=== PATIENT | female | born 1940 | race Caucasian/White ===

== ENCOUNTER → 2019-07-06 11:07 | Outpatient (CLI) | payer MEDICARE, SELFPAY ==
--- NOTE | ~2019-07-06 | DEXA_ITS ---
Bone Density Report Name: Kalyani Galvez Age: 79 Sex: Female Ethnicity: White Date of : 1940 Indication: osteopenia; parental hip fracture; height loss; postmenopausal Referring Provider: GHADA, ZACH Cook Study: Bone densitometry was performed. Exam Date: July 06, 2019 Accession number: [id number] There is hypertrophic degenerative change of the lumbar spine, which results in higher than expected spine bone mineral density measurements. These spine BMD and T score and Z score measurements are not reflective of the patient's true general bone mineral density. Bone Density: Region BMD T-score Z-score Classification AP Spine (L1-L4) 0.984 -0.6 2.2 Normal Femoral Neck (Left) 0.631 -2.0 0.4 Osteopenia Total Hip (Left) 0.705 -1.9 0.2 Osteopenia Femoral Neck (Right) 0.621 -2.0 0.3 Osteopenia Total Hip (Right) 0.797 -1.2 0.9 Osteopenia Total Hip Mean 0.751 -1.6 0.6 Osteopenia World Health Organization criteria for BMD impression classify patients as: Normal (T-score at or above -1.0), Osteopenia (T-score between -1.0 and -2.5), or Osteoporosis (T-score at or below -2.5). 10-year Fracture Risk(1): Major Osteoporotic Fracture 29% Hip Fracture 19% Reported Risk Factors: [place] (), Neck BMD=0.621, BMI=24.1, parental fracture (1) FRAX(R) Version 3.08. Fracture probability calculated for an untreated patient. Fracture probability may be lower if the patient has received treatment. Previous Exams: Region Exam Age BMD T-score BMD Change BMD Change Date g/cm2 vs Baseline vs Previous AP Spine(L1-L4) 07/06/2019 79 0.984 -0.6 0.092* 0.083* 05/12/2009 69 0.900 -1.3 0.008 0.008 03/13/2008 67 0.892 -1.4 Total Hip(Left) 07/06/2019 79 0.705 -1.9 -0.031* -0.068* 05/12/2009 69 0.773 -1.4 0.037* 0.037* 03/13/2008 67 0.736 -1.7 Total Hip(Right) 07/06/2019 79 0.797 -1.2 -0.010 -0.019 05/12/2009 69 0.816 -1.0 0.009 0.009 03/13/2008 67 0.807 -1.1 *Denotes significance at 95% confidence level, LSC for AP Spine = 0.022 g/cm2, LSC for Total Hip = 0.027 g/cm2 Clinical Information Provided by Patient: Parent has had a hip fracture Has used the following medications: Vitamin D, Calcium, LEVOTHYROXINE Patient maximum height was 68.0 Menopause Age: 50 No regular weight bearing exercise Drinks caffeinated beverages Onset of menses at age 10 Number of children 5 -
== END ==
PROVIDERS: PCP Internal Medicine; Visit Provider Internal Medicine
DX: Z78.0 Asymptomatic menopausal state (principal); M85.852 Other specified disorders of bone density and structure, left thigh; M85.851 Other specified disorders of bone density and structure, right thigh
CPT/HCPCS: 77080

== ENCOUNTER 2022-07-12 22:25 | Inpatient (IN) | payer MEDICARE, SELFPAY ==
--- NOTE | ~2022-07-12 | XR_ITS ---
AP and lateral views of the left femur Clinical History: Pain Findings: No acute fracture or dislocation is seen. Osseous alignment is anatomic. Left hip joint spa ce is intact. Left knee arthroplasty hardware is present. Soft tissues are unremarkable. Impression: No acute abnormality. Left total knee arthroplasty. Reviewed, dictated and finalized at [facility]. DAMAGE ADJUSTER Impression: No acute abnormality. Left total knee arthroplasty.
--- NOTE | ~2022-07-12 | CT_ITS ---
Noncontrast CT scan of the lumbar spine CLINICAL HISTORY: Back pain, status post fall TECHNIQUE: Axial noncontrast imaging of the lumbar spine was performed. Sagittal and coronal reformat peterson images were constructed. Dose reduction technique was used on this scan by utilizing automated ex posure control and iterative reconstruction technique. FINDINGS: There is levoscoliosis of the lumbar spine. 8 mm anterolisthesis of L5 over S1 present. 5 m m anterolisthesis of L4 over L5 present. No acute fracture identified. There is mild degenerative dis c changes throughout the lumbar spine. At L1-L2, no definite disc bulge or herniation seen. There is facet arthropathy. No spinal canal sten osis. There is severe right neural foraminal narrowing. Left neural foramen preserved. At L2-L3, there is minimal disc bulge. There is facet arthropathy, right worse than left, probable ri ght lateral recess stenosis. There is probable mild to moderate right neural foraminal narrowing. Lef t neural foramen preserved. At L3-L4, disc bulge and facet arthropathy result in mild central canal stenosis. There is moderate t o severe right neural foraminal narrowing. Left neural foramen preserved. At L4-L5, disc bulge and facet arthropathy result in probable severe thecal sac compression/spinal ca nal stenosis. There is mild bilateral neural foraminal narrowing, left fourth digit rate. At L5-S1, disc bulge and facet arthropathy result in focal severe spinal canal stenosis/thecal sac co mpression. There is severe bilateral neural foraminal narrowing. Paravertebral soft tissues are unremarkable. IMPRESSION: No acute fracture. Levoscoliosis with 8 mm anterolisthesis of L5 over S1, and 5 mm anterolisthesis of L4 over L5. Moderate to advanced degenerative spondylosis, as detailed above. There is severe spinal canal stenos is at L4-L5 and L5-S1, with multilevel neural foraminal narrowing. Reviewed, dictated and finalized at location M. UNT INSTALLATION SPECIALIST IMPRESSION: No acute fracture. Levoscoliosis with 8 mm anterolisthesis of L5 over S1, and 5 mm anterolisthesis of L4 over L5. Moderate to advanced degenerative spondylosis, as detailed above. There is ange re spinal canal stenosis at L4-L5 and L5-S1, with multilevel neural foraminal n arrowing.
--- NOTE | ~2022-07-12 | XR_ITS ---
EXAMINATION: XR surgery orthopedic DATE: 07/14/2022 16:39 INDICATION: Pinning of a right femoral neck fracture. TECHNIQUE: 2 fluoroscopic images of the right hip were obtained during procedure performed by Dr. Edouard sarmiento. Radiologist was not present for the imaging or procedure. The amount of fluoroscopy time used duri ng this procedure was 0.9 minutes. COMPARISON: 07/13/2022 FINDINGS: Interval fixation with 3 cannulated lag screws of the laterally impacted subcapital fracture of the p roximal right femur. The screws do not project beyond the articular cortex of the femoral head. The f emoral head remains normally centered in the right acetabulum but is rotated as with abduction. No ot her fractures identified. IMPRESSION: 1. Leg screw fixation of a lateral impacted right femoral subcapital fracture. Reviewed, dictated and finalized at location A. EMENTATION ENGINEER
--- NOTE | ~2022-07-12 | XR_ITS ---
Portable chest x-ray Comparison: 05/10/2012 Clinical History: Hypoxemia Findings: Lungs are clear, without focal consolidation or pleural effusion. Cardiomediastinal silho uette is mildly prominent, with pacemaker device. Bones and soft tissues are unremarkable. Impression: Clear lungs. Pacemaker device. Reviewed, dictated and finalized at location . [employer] Impression: Clear lungs. Pacemaker device.
--- NOTE | ~2022-07-12 | XR_ITS ---
AP and lateral views of the right femur Clinical History: Pain Findings: There is a subcapital fracture of the right femoral neck, probably minimally impacted and m inimally displaced. Remainder of the right femur is intact. Visualized joint spaces are grossly prese rved. Soft tissues are unremarkable. Impression: Traumatic subcapital fracture of the right femoral neck, as detailed above. Reviewed, dictated and finalized at location M. INSPECTOR Impression: Traumatic subcapital fracture of the right femoral neck, as detailed above.
--- NOTE | ~2022-07-12 | CT_ITS ---
CT head without contrast Indication: Status post fall, anticoagulated Technique: Serial scans were obtained through the brain without the administration of contrast. Dose reduction technique was used on this scan by utilizing automated exposure control and iterative recon struction technique. The dose-length product (DLP) was 605.33 mGy-cm. Findings: There is no evidence of intracranial hemorrhage, mass lesion, or acute infarct. The ventri cles and subarachnoid spaces are dilated, consistent with mild atrophy. Low attenuation regions are seen within the periventricular white matter bilaterally, likely representing changes from chronic mi crovascular ischemic disease. There is no evidence of edema, mass effect or midline shift. The visu alized paranasal sinuses and mastoid air cells are clear. Impression: No intracranial hemorrhage, mass, or acute infarct. Atrophy and chronic white matter changes, as above. Reviewed, dictated and finalized at location . OR MERCHANDISER Impression: No intracranial hemorrhage, mass, or acute infarct. Atrophy and chronic white matter changes, as above.
--- NOTE | ~2022-07-12 | CT_ITS ---
Non-contrast CT scan of the Pelvis Clinical indication: Trauma, status post fall Technique: 2.5 mm axial scans were obtained through the pelvis without intravenous or oral contrast. Dose reduction technique was used on this scan by utilizing automated exposure control and iterative reconstruction technique. The dose-length product (DLP) was 843.12 mGy-cm. Findings: There is a traumatic, transverse, minimally impacted fracture through the subcapital region of the right femoral neck. No other fracture or dislocation seen. Bilateral hip and SI joint spaces are well preserved. Probable small right hip joint effusion present. Soft tissues about the pelvis/right hip are essentially unremarkable. No large hematoma evident. No f luid collection or mass lesion identified. There is enthesopathic change at the right hamstring tendo n origin region. Impression: Mildly impacted, minimally displaced subcapital fracture of the right femoral neck. Reviewed, dictated and finalized at [facility]. CAL HACKER Impression: Mildly impacted, minimally displaced subcapital fracture of the right femoral n maría.
[2022-07-12 22:33] VITALS: BP 132/74; PULSE 84; RESP 16; TEMP 36.5; O2SAT 90
--- NOTE | 2022-07-12 23:02 | PC.NURSE ---
Nurse report given to Vibha MEJIA
--- NOTE | 2022-07-12 23:49 | ED.GENADULT ---
HPI - General Adult General Chief complaint: Extremity Injury, Lower Stated complaint: fall-right hip pain Time Seen by Provider: 07/12/22 23:19 Source: patient and family Mode of arrival: wheelchair Limitations: no limitations History of Present Illness HPI narrative: This is a 82-year-old female who comes in with chief complaint of a fall and right hip pain. The fall occurred at around 1800. She reports she tripped over her area rug and landed directly onto the right hip and right leg. Denies any specific head injury. Denies syncope. She does take Eliquis. Patient reports pain is limited to the right upper leg and right hip and low back. She took Tylenol around 1 hour after the fall and this had minimal relief. Her family witnessed the fall and was able to drive her to the ED. She has not been able to bear any weight. Denies any further site of injury. Related Data Allergies Allergy/AdvReac Type Severity Reaction Status Date / Time NKDA Allergy Mild Uncoded 08/16/19 15:13 Review of Systems Review of Systems: CONSTITUTIONAL: Denies fever, chills, or sweats. EYES: Denies visual changes, redness, or discharge. ENT: Denies rhinorrhea, congestion, sore throat, or otalgia. CARDIOVASCULAR: Denies chest pain, palpitations, or edema. RESPIRATORY: Denies cough or dyspnea. GASTROINTESTINAL: Denies abdominal pain, nausea, vomiting, or diarrhea. GENITOURINARY: Denies dysuria or hematuria. SKIN: Denies rash or itching. MUSCULOSKELETAL: Endorses right hip pain, right leg pain and back pain. Endorses low back pain. denies further sites of pain pain, or myalgia. NEUROLOGIC: Denies syncope, headache, numbness, dizziness, or weakness. PSYCHIATRIC: Denies anxiety or depression. Exam Narrative: GENERAL: Well-appearing, well-nourished, and in no acute distress. HEAD: Normocephalic, atraumatic. EYES: PERRLA and EOMI. ENT: Nares clear, no rhinorrhea or epistaxis. Mucous membranes moist. Oropharynx without tonsillar hypertrophy exudate or other lesions. NECK: Supple. No adenopathy or masses. CHEST: No respiratory distress. Clear to auscultation. No wheezes rales or rhonchi HEART: Regular rate and rhythm. No murmur heard. Normal peripheral pulses. ABDOMEN: Soft, nontender, nondistended, normal active bowel sounds. EXTREMITIES: Pain with logroll of the right lower extremity. No pain with logroll of the left lower extremity. Moderate tenderness to palpation in the right anterior proximal thigh as well as the right lateral thigh. Mild tenderness to the lumbar spine and paraspinal muscles. Leg lengths appear equal. No edema. SKIN: Warm, dry, no rash. No overlying skin changes NEURO: Cranial nerves II through XII intact. Alert and oriented x3. No focal deficits. PSYCH: Normal mood and affect. Course Course Emergency Course: : Discussed patient with the hospitalist and they agreed to admit to [facility]. 0305: Consult Dr Michaud with Ortho Vital Signs Vital signs: Vital Signs Temperature 97.7 F 07/12/22 22:33 Pulse Rate 84 07/12/22 22:33 Respiratory Rate 16 07/12/22 22:33 Blood Pressure 132/74 07/12/22 22:33 Pulse Oximetry 90 07/12/22 22:33 Oxygen Delivery Room Air 07/12/22 22:33 Temperature 97.7 F 07/12/22 22:33 Pulse Rate 60 07/13/22 01:46 Respiratory Rate 16 07/13/22 01:46 Blood Pressure 122/74 07/13/22 01:46 Pulse Oximetry 92 07/13/22 01:46 Oxygen Delivery Room Air 07/12/22 22:33 Medical Decision Making MDM Narrative Medical decision making narrative: This is a 82-year-old female who presents with right hip pain occurring this evening prior to arrival in the ED. Imaging shows a right femoral neck fracture with minimal displacement and angulation. Imaging of the lumbar spine and rest of the right femur are negative for any acute fractures or bony processes. CBC and CMP are relatively unremarkable. She has been satting at 85 to 90% on room air while she has been here. Hooked up to
[2022-07-13] VITALS (41 sets, daily range): BP systolic 93–132; BP diastolic 51–75; PULSE 45–81; RESP 13–22; TEMP 36.2–37.2; O2SAT 84–98; BMI 23.3
[2022-07-13 01:07] LABS: Basophils Percent Auto 0.2 % (0.2-1.2); Eosinophils Percent Auto 0.2 % (0-4.4); Immature Granulocyte Absolute 0.04 K/mm3 (0.00-0.031); Immature Granulocyte Percent A 0.4 % (0-0.5); Immature Platelet Fraction Pct 4.4 % (0.9-11.2); Lymphocytes Absolute Auto 0.49 K/mm3 (0.9-3.2); Lymphocytes Percent Auto 5.5 % (18.3-44.2); Mean Corpuscular HGB Conc 34.2 g/dl (32-36); Mean Corpuscular Hemoglobin 33.8 pg (26-34); Mean Corpuscular Volume 98.7 fl (80-100); Mean Platelet Volume 9.5 fl (7.4-10.4); Monocytes Absolute Auto 0.6 K/mm3 (0.1-0.6); Monocytes Percent Auto 6.4 % (2.6-8.5); Neutrophils Absolute Auto 7.8 K/mm3 (1.3-6.7); Neutrophils Percent Auto 87.3 % (45.5-73.1); Platelet Count Result 161 k/mm3 (150-375); Red Blood Count 3.85 M/mm3 (4.2-5.4); Red Cell Distribution Width 13.1 % (11.5-14.5); White Blood Count 8.9 K/mm3 (4.5-10.0)
[2022-07-13] MEDS: MORPHINE SULFATE (*CRX) 2 MG/ML INJ IV PUSH (01:11)
[2022-07-13] MEDS: ONDANSETRON INJ 4 MG/2 ML VIAL IV PUSH (01:11)
[2022-07-13 01:15] LABS: Alanine Aminotransferase 24 U/L (6-35); Albumin Level 4.1 g/dL (3.5-5.1); Alkaline Phosphatase 90 U/L (38-126); Anion Gap 5 mmol/L (8-16); Aspartate Amino Transferase 41 U/L (14-36); Bilirubin,Total 0.9 mg/dL (0.2-1.3); Blood Urea Nitrogen 31 mg/dL (7-17); Calcium 8.6 mg/dL (8.4-10.2); Carbon Dioxide 27 mmol/L (22-30); Chloride 100 mmol/L (98-107); Estimated CRCL calculation 41 ml/min; Estimated Glomerular Filt Rate > 60; Glucose 146 mg/dL (65-110); Potassium 3.7 mmol/L (3.4-5.0); Sodium 132 mmol/L (137-145)
[2022-07-13 02:20] LABS: Appearance Urine Clear (Clear); Bilirubin Urine Negative (Negative); Blood Urine 2+ (Negative); Color Urine Yellow (Yellow); Glucose Urine UA Negative (Negative); Ketones Urine Negative (Negative); Leukocyte Esterase Ur Negative LEU/UL (Negative); Nitrate Urine Negative (Negative); Protein Urine Negative (Negative); Specific Grav Ur 1.015 (1.001-1.035); Urobilinogen Urine 0.2 mg/dL (<2.0)
[2022-07-13 02:26] LABS: WBC Urine 0-3 /hpf
[2022-07-13 02:28] LABS: Add Urine Microscopic? YES
[2022-07-13 02:36] LABS: Influenza A QL RT-PCR Negative (Negative); Influenza B QL RT-PCR Negative (Negative); RSV RNA, RT-PCR Negative (Negative); SARS-CoV-2 RNA PCR Negative
--- NOTE | 2022-07-13 04:45 | ADMGEN ---
This patient, Kalyani Galvez, was admitted to 3 Med Surg Room 306-02 at 0430. Patient/family oriented to hospital policies and general routines including ID bracelet, bed and alarms, visiting hours, pain management, procedures, bathroom and other care routines, personal items, smoking policy, room service/diet, and visiting hours. Information on how to activate the Rapid Response Team has been discussed. Patient/Family are encouraged to report perceived risks to care and to ask questions if they do not understand what they are told or what they should do.
[2022-07-13] MEDS: MORPHINE SULFATE (*CRX) 4 MG/ML INJ IV PUSH (05:10)
[2022-07-13] MEDS: lisinopriL 2.5 MG TABLET PO (09:18)
[2022-07-13] MEDS: METOPROLOL SUCCINATE EXT REL 100 MG TABCR PO (09:18)
[2022-07-13] MEDS: oxyBUTYnin CHLORIDE XL 5 MG TAB.ER.24 15 MG PO (09:18)
[2022-07-13] MEDS: HEPARIN SODIUM 5,000 UNITS/ML VIAL 5000 UNITS SUB-Q ×3 (09:18→21:13)
--- NOTE | 2022-07-13 11:03 | PM.CNOR ---
Assessment and Plan Assessment and plan (1) Closed fracture of neck of right femur: Qualifiers: Encounter type: initial encounter Qualified Code(s): S72.001A - Fracture of unspecified part of neck of right femur, initial encounter for closed fracture Code(s): S72.001A - Fracture of unspecified part of neck of right femur, initial encounter for closed fracture Status: Acute Plan 82-year-old female with an impacted right femoral neck fracture seen on the CT scan. I discussed with her the role of surgical stabilization with a pinning in-situ. She is chronically on Eliquis which is going to be held today. Plan on proceeding tomorrow afternoon with Pinning in-situ right femoral neck fracture. Risks and potential complications were discussed in detail and questions answered. Although she lives at home with her she may need a short rehab stay depending on how she does postoperatively. May benefit from home health PT if she is able to get home. Thank you for the consultation. History of Present Illness HPI Consult date: 07/13/22 Chief complaint: Right Femoral Neck Fracture Narrative: This document created with [id number] technology and is subject to sheet metal operator irregularities. 82-year-old female who fell at home yesterday landing on her right side suffering an impacted right femoral neck fracture. No other significant injury with this occurrence. Review of Systems Constitutional: Constitutional: Reports no additional constitutional complaints, Denies excessive sweating and Denies fatigue Eyes: Eyes: Reports no additional eye complaints ENT: Reports system reviewed and no additional complaints, except as documented Cardiovascular: Cardiovascular: Denies chest pain at rest and Denies dyspnea Respiratory: Respiratory: Reports no additional respiratory complaints and Denies dyspnea Gastrointestinal: Gastrointestinal: Reports no additional gastrointestinal complaints Musculoskeletal: Musculoskeletal: Reports as per HPI Integumentary/Breasts: Skin/Breast: Reports system reviewed and no additional complaints, except as docu Neurologic: Reports as per HPI Endocrine: Endocrine: Denies excessive sweating and Denies fatigue Hematologic/Lymphatic: Hematologic/Lymphatic: Denies easy bleeding and Denies easy bruising PMFSH Past Medical History Medical History (Updated 07/13/22 @ 11:08 by Salo Michaud MD) Atrial fibrillation Hypertension Hypothyroid Pacemaker Surgical History Surgical History (Updated 07/13/22 @ 11:04 by Salo Michaud MD) History of left knee replacement Social History Social History Smoking status: Never smoker Alcohol intake: current Drinks per week: 1 Substance use: never Lack of Transportation: No Lack of Food: Never True Current Housing: I Have Housing Concerned About Future Housing: No Difficulty Paying Gas/Electric Bills: No Difficulty Paying for Meds: No Currently Unemployed: No Education: Master's Degree or Higher Difficulty w/ Childcare or Family Care: No Spiritual care concerns: No Meds Home Medications and Allergies Home Medications Medication Instructions Recorded Confirmed Type apixaban 5 mg tablet (Eliquis) 5 mg PO BID 07/13/22 07/13/22 History levothyroxine 75 mcg tablet 75 mcg PO DAILY 07/13/22 07/13/22 History lisinopril 2.5 mg tablet 2.5 mg PO DAILY 07/13/22 07/13/22 History metoprolol succinate 100 mg 100 mg PO BID 07/13/22 07/13/22 History tablet,extended release 24 hr oxybutynin chloride 15 mg 15 mg PO DAILY 07/13/22 07/13/22 History tablet,extended release 24 hr Allergies Allergy/AdvReac Type Severity Reaction Status Date / Time oxycodone AdvReac Severe Stopped Verified 07/13/22 07:53 Breathing Vital Signs Vital Signs - 24 hr 07/12/22 22:33 07/13/22 01:15 07/13/22 01:16 Temperature 97.7 F Pulse Rate 84 61
--- NOTE | 2022-07-13 12:59 | PM.IMHP ---
H&P: HPI History of Present Illness Date/Time: 07/13/22 12:59 Chief Complaint: Fall Narrative: 82 years old F with PMH of Afibb on AC presented with fall. She fell around 6PM last night.? She reports she tripped over her area rug and landed directly onto the right hip and right leg.? Denies any specific head injury.? Denies syncope.? She does take Eliquis.?? Her family witnessed the fall and was able to drive her to the ED.? She has not been able to bear any weight.? Denies any further site of injury. Requesting to decrease/switch IV morphine to something less strong. Review of Systems Constitutional: Constitutional: Reports no additional constitutional complaints Eyes: Eyes: Reports no additional eye complaints ENT: Reports system reviewed and no additional complaints, except as documented Cardiovascular: Cardiovascular: Reports no additional cardiovascular complaints Respiratory: Respiratory: Reports no additional respiratory complaints Gastrointestinal: Gastrointestinal: Reports no additional gastrointestinal complaints Musculoskeletal: Musculoskeletal: Reports arthralgias Neurologic: Reports system reviewed and no additional complaints, except as documented [facility] Past Medical History Medical History (Updated 07/13/22 @ 13:05 by Theresa García MD) Atrial fibrillation Hypertension Hypothyroid Pacemaker Surgical History Surgical History History of left knee replacement Social History Social History Smoking status: Never smoker Alcohol intake: current Drinks per week: 1 Substance use: never Lack of Transportation: No Lack of Food: Never True Current Housing: I Have Housing Concerned About Future Housing: No Difficulty Paying Gas/Electric Bills: No Difficulty Paying for Meds: No Currently Unemployed: No Education: Master's Degree or Higher Difficulty w/ Childcare or Family Care: No Spiritual care concerns: No Meds Home Medications and Allergies Home Medications Medication Instructions Recorded Confirmed Type apixaban 5 mg tablet (Eliquis) 5 mg PO BID 07/13/22 07/13/22 History levothyroxine 75 mcg tablet 75 mcg PO DAILY 07/13/22 07/13/22 History lisinopril 2.5 mg tablet 2.5 mg PO DAILY 07/13/22 07/13/22 History metoprolol succinate 100 mg 100 mg PO BID 07/13/22 07/13/22 History tablet,extended release 24 hr oxybutynin chloride 15 mg 15 mg PO DAILY 07/13/22 07/13/22 History tablet,extended release 24 hr Allergies Allergy/AdvReac Type Severity Reaction Status Date / Time oxycodone AdvReac Severe Stopped Verified 07/13/22 07:53 Breathing Vital Signs Vital Signs - 24 hr 07/12/22 22:33 07/13/22 01:15 07/13/22 01:16 Temperature 97.7 F Pulse Rate 84 61 61 Respiratory Rate 16 17 16 Blood Pressure 132/74 132/75 Pulse Oximetry 90 91 84 L Oxygen Delivery Room Air 07/13/22 01:17 07/13/22 01:30 07/13/22 01:31 Temperature Pulse Rate 60 60 61 Respiratory Rate 13 13 14 Blood Pressure 117/69 Pulse Oximetry 86 L 94 Oxygen Delivery 07/13/22 01:32 07/13/22 01:41 07/13/22 01:45 Temperature Pulse Rate 62 65 62 Respiratory Rate 15 20 15 Blood Pressure Pulse Oximetry 97 93 93 Oxygen Delivery 07/13/22 01:46 07/13/22 01:47 07/13/22 01:50 Temperature Pulse Rate 60 60 60 Respiratory Rate 16 19 16 Blood Pressure 122/74 Pulse Oximetry 92 96 93 Oxygen Delivery 07/13/22 01:55 07/13/22 02:00 07/13/22 02:05 Temperature Pulse Rate 60 81 72 Respiratory Rate 17 22 H 17 Blood Pressure Pulse Oximetry 84 L 91 Oxygen Delivery 07/13/22 02:12 07/13/22 02:15 07/13/22 02:33 Temperature Pulse Rate 66 62 63 Respiratory Rate 18 17 15 Blood Pressure Pulse Oximetry 91 93 93 Oxygen Delivery 07/13/22 02:35 07/13/22 02:40 07/13/22 02:49 Temperature Pulse Rate 61 60 60 Respiratory Rate
[2022-07-13] MEDS: SODIUM CHLORIDE 0.9% IV 500 ML IV CONT (16:21)
[2022-07-13] MEDS: SODIUM CHLORIDE 0.9% IV 1,000 ML 75 ML IV CONT (18:17)
[2022-07-13] MEDS: ACETAMINOPHEN 325 MG TABLET 650 MG PO (19:14)
[2022-07-13] MEDS: MIDODRINE HCL 2.5 MG TABLET 5 MG PO (19:14)
[2022-07-14] VITALS (14 sets, daily range): BP systolic 128–170; BP diastolic 71–108; PULSE 48–80; RESP 13–18; TEMP 36.1–37.6; O2SAT 93–100
[2022-07-14 06:03] LABS: Basophils Percent Auto 0.5 % (0.2-1.2); Eosinophils Absolute Auto 0.2 K/mm3 (0-0.3); Eosinophils Percent Auto 3.5 % (0-4.4); Hematocrit 32.9 % (37.0-47.0); Immature Granulocyte Absolute 0.02 K/mm3 (0.00-0.031); Immature Granulocyte Percent A 0.3 % (0-0.5); Immature Platelet Fraction Pct 5.4 % (0.9-11.2); Lymphocytes Absolute Auto 1.08 K/mm3 (0.9-3.2); Lymphocytes Percent Auto 17.9 % (18.3-44.2); Mean Corpuscular HGB Conc 33.4 g/dl (32-36); Mean Corpuscular Hemoglobin 33.7 pg (26-34); Mean Corpuscular Volume 100.9 fl (80-100); Mean Platelet Volume 10.5 fl (7.4-10.4); Monocytes Absolute Auto 0.5 K/mm3 (0.1-0.6); Monocytes Percent Auto 7.5 % (2.6-8.5); Neutrophils Absolute Auto 4.3 K/mm3 (1.3-6.7); Neutrophils Percent Auto 70.3 % (45.5-73.1); Platelet Count Result 118 k/mm3 (150-375); Red Blood Count 3.26 M/mm3 (4.2-5.4)
[2022-07-14 06:09] LABS: Anion Gap 2 mmol/L (8-16); Blood Urea Nitrogen 25 mg/dL (7-17); Calcium 7.6 mg/dL (8.4-10.2); Carbon Dioxide 25 mmol/L (22-30); Chloride 103 mmol/L (98-107); Estimated CRCL calculation 41 ml/min; Estimated Glomerular Filt Rate > 60; Glucose 89 mg/dL (65-110); Potassium 4.4 mmol/L (3.4-5.0); Sodium 130 mmol/L (137-145)
[2022-07-14 06:29] LABS: Hemoglobin A1C 5.2 % (<5.7)
[2022-07-14] MEDS: SODIUM CHLORIDE 0.9% IV 1,000 ML 75 ML IV CONT (07:49)
[2022-07-14 13:45] LABS: Glucose Point of Care 80 mg/dl (65-105)
[2022-07-14] MEDS: LACTATED RINGERS 1,000 ML 30 ML IV CONT (14:25)
--- NOTE | 2022-07-14 14:39 | WPDANESEPPF ---
Anes - Initial Pre Proc Eval Procedure: Operation Date: 07/14/22 15:30 Proposed Procedures p Right Hip Pinning - Salo Michaud MD Date/Time: 07/14/22 14:39 Surgeon: Santosh Romo MD Pre Op Diagnosis: Right Femoral Neck Fracture Patient Data Age: 82 Gender: F Height: 1.65 m Weight: 63.5 kg Last Vital Signs Temp 37.6 C H 07/14/22 14:35 Pulse 48 L 07/14/22 14:35 Resp 16 07/14/22 14:35 BP 137/84 07/14/22 14:35 Pulse Ox 98 07/14/22 14:35 O2 Del Method Room Air 07/14/22 14:35 O2 Flow Rate 2 07/14/22 09:27 Allergies Allergy/AdvReac Type Severity Reaction Status Date / Time oxycodone AdvReac Severe Stopped Verified 07/14/22 14:34 Breathing Home Medications Medication Instructions Recorded Confirmed Type apixaban 5 mg tablet (Eliquis) 5 mg PO BID 07/13/22 07/13/22 History levothyroxine 75 mcg tablet 75 mcg PO DAILY 07/13/22 07/13/22 History lisinopril 2.5 mg tablet 2.5 mg PO DAILY 07/13/22 07/13/22 History metoprolol succinate 100 mg 100 mg PO BID 07/13/22 07/13/22 History tablet,extended release 24 hr oxybutynin chloride 15 mg 15 mg PO DAILY 07/13/22 07/13/22 History tablet,extended release 24 hr Laboratory Tests 07/14/22 07/14/22 07/14/22 05:30 05:30 05:30 WBC 6.0 K/mm3 K/mm3 (4.5-10.0) RBC 3.26 M/mm3 L M/mm3 (4.2-5.4) Hgb 11.0 g/dL L g/dL (12.0-15.0) Hct 32.9 % L % (37.0-47.0) MCV 100.9 fl H fl (80-100) MCH 33.7 pg pg (26-34) MCHC 33.4 g/dl g/dl (32-36) RDW 13.0 % % (11.5-14.5) Plt Count 118 k/mm3 L k/mm3 (150-375) MPV 10.5 fl H fl (7.4-10.4) Immature Gran % (Auto) 0.3 % % (0-0.5) Neut % (Auto) 70.3 % % (45.5-73.1) Lymph % (Auto) 17.9 % L % (18.3-44.2) Wayne % (Auto) 7.5 % % (2.6-8.5) Eos % (Auto) 3.5 % % (0-4.4) Baso % (Auto) 0.5 % % (0.2-1.2) Lymph # (Auto) 1.08 K/mm3 K/mm3 (0.9-3.2) Wayne # (Auto) 0.5 K/mm3 K/mm3 (0.1-0.6) Eos # (Auto) 0.2 K/mm3 K/mm3 (0-0.3) Baso # (Auto) 0.0 K/mm3 K/mm3 (0.0-0.1) Abs Immat Gran (auto) 0.02 K/mm3 K/mm3 (0.00-0.031) Absolute Neuts (auto) 4.3 K/mm3 K/mm3 (1.3-6.7) Absolute Nucleated RBC 0.0 K/mm3 K/mm3 (0.0-0.012) Nucleated RBC % 0.0 % % (0.0-0.2) % Immature Plt Fraction 5.4 % % (0.9-11.2) Sodium 130 mmol/L L mmol/L (137-145) Potassium 4.4 mmol/L mmol/L (3.4-5.0) Chloride 103 mmol/L mmol/L (98-107) Carbon Dioxide 25 mmol/L mmol/L (22-30) Anion Gap 2 mmol/L L mmol/L (8-16) BUN 25 mg/dL H mg/dL (7-17) Creatinine 0.80 mg/dL mg/dL (0.7-1.0) Estim Creat Clear Calc 41 ml/min ml/min Estimated GFR > 60 (59 - ) Glucose 89 mg/dL mg/dL (65-110) POC Capillary Glucose Hemoglobin A1c 5.2 % % (<5.7) Calcium 7.6 mg/dL L mg/dL (8.4-10.2) 07/14/22 13:41 WBC RBC Hgb Hct MCV MCH MCHC RDW Plt Count MPV Immature Gran % (Auto) Neut % (Auto) Lymph % (Auto) Wayne % (Auto) Eos % (Auto) Baso % (Auto) Lymph # (Auto) Wayne # (Auto) Eos # (Auto) Baso # (Auto) Abs Immat Gran (auto) Absolute Neuts (auto) Absolute Nucleated RBC Nucleated RBC % % Immature Plt Fraction Sodium Potassium Chloride Carbon Dioxide Anion Gap BUN Creatinine Estim Creat Clear Calc Estimated GFR Glucose POC Capillary Glucose 80 mg/dl mg/dl (65-105) Hemoglobin A1c Calcium Patient hx anesthesia problems: none Family hx anesthesia problems: none Results Review: All pre-operative r
--- NOTE | 2022-07-14 15:20 | WPDHPUPDATE1 ---
History and Physical Update Update Date/Time: 07/14/22 15:20 History and Physical has been reviewed, including an updated exam of the patient. There are NO changes in the patient's condition. Risks, benefits, and alternatives have been discussed and questions answered. Patient agrees to proceed with procedure.
[2022-07-14] MEDS: ceFAZolin 2 GM/D5W 50 ML 2 GM/50 ML BAG IVPB (15:39)
--- NOTE | 2022-07-14 15:42 | PM.IMPN ---
Progress Note: A&P Assessment and Plan (1) Closed fracture of neck of right femur: Qualifiers: Encounter type: initial encounter Qualified Code(s): S72.001A - Fracture of unspecified part of neck of right femur, initial encounter for closed fracture Code(s): S72.001A - Fracture of unspecified part of neck of right femur, initial encounter for closed fracture Status: Acute (2) Atrial fibrillation: Code(s): I48.91 - Unspecified atrial fibrillation Status: Acute (3) Pacemaker: Code(s): Z95.0 - Presence of cardiac pacemaker Status: Acute Plan 82 years old F with PMH of Afbb, has pacemaker presented after mechanical fall, found to have right hip fracture. # Right Hip Fracture:[facility] Bed rest Pain control Appreciate Orthopedic help Going for surgery today # H/o Afibb: Eliquis on hold Bradycardic and hence metoprolol on hold # HTN: Resume Lisinopril, BB. Beta-reji currently on hold due to bradycardia. May need to lower the does eventually # H/o Hypothyroidism: c/w Levothyroxine # DVT ppx: SCD # Code:Full # Dispo: PT OT after the surgery likely need rehabilitation Subjective Date/time seen: 07/14/22 15:42 Interval history: Pain is controlled. Denies any new complaints. No chest pain or shortness of breath. Plan for surgery today. Review of Systems Review of Systems: All systems reviewed & are unremarkable except as noted in HPI and below Exam Narrative: GENERAL: Well-appearing, well-nourished, and in no acute distress. HEAD: Normocephalic, atraumatic. EYES: PERRLA and EOMI. NECK: Supple.? No adenopathy or masses.? CHEST: No respiratory distress. Clear to auscultation. No wheezes rales or rhonchi HEART: Regular rate and rhythm.? No murmur heard.? Normal peripheral pulses. ABDOMEN: Soft, nontender, nondistended, normal active bowel sounds. EXTREMITIES: Pain with logroll of the right lower extremity.?No edema. SKIN: Warm, dry, no rash.? No overlying skin changes NEURO: Cranial nerves II through XII intact.? Alert and oriented x3. No focal deficits.? PSYCH: Normal mood and affect. Objective Data Vital Signs Vital Signs: Vital Signs - 24 hr 07/13/22 16:18 07/13/22 17:30 07/13/22 20:00 Temperature Pulse Rate 45 L Respiratory Rate Blood Pressure 98/60 L 102/60 Pulse Oximetry 92 93 Oxygen Delivery Nasal Cannula Oxygen Flow Rate 2 07/13/22 22:00 07/14/22 06:00 07/14/22 09:27 Temperature 98.0 F 98 F Pulse Rate 69 66 Respiratory Rate 16 17 Blood Pressure 108/61 146/76 H Pulse Oximetry 95 94 98 Oxygen Delivery Nasal Cannula Oxygen Flow Rate 2 07/14/22 09:46 07/14/22 14:00 07/14/22 14:35 Temperature 98.7 F 99.7 F H Pulse Rate 48 L Respiratory Rate 18 16 Blood Pressure 128/82 137/84 Pulse Oximetry 93 96 98 Oxygen Delivery Room Air Room Air Oxygen Flow Rate Intake/Output Intake/Output: Intake & Output 07/11/22 07/12/22 07/13/22 07/14/22 23:59 23:59 23:59 23:59 Intake Total 1710 1000 Output Total 950 1400 Balance 760 -400 Meds/Results Medications: Active Medications Generic Name Dose Route Start Last Admin Trade Name Freq PRN Reason Stop Dose Admin Acetaminophen 650 mg 07/13/22 18:22 07/13/22 19:14 Acetaminophen 325 Mg Tablet PO 650 mg Q6H PRN Administration Mild Pain (1-3) or Fever Fentanyl Citrate 25 mcg 07/14/22 14:34 Fentanyl Citrate Inj (*Crx) 100 Mcg/2 Ml Vial IV PUSH Q2M PRN Pain Sodium Chloride 1,000 mls @ 75 mls/hr 07/13/22 17:45 07/14/22 07:49 Normal Saline Iv IV CONT 75 mls/hr .[id number] EMERSON Administration Lactated Ringer's 1,000 mls @ 30 mls/hr 07/14/22 14:35 07/14/22 14:25 Lr - Lactated Ringers Iv IV CONT 30 mls/hr .Q24H EMERSON Administration Lactated Ringer's 1,000 mls @ 30 mls/hr 07/14/22 14:35 Lr - Lactated Ringers Iv IV CONT .Q24H EMERSON Levothyroxine Sodium 75 mcg 07/13/22 06:30 02
[2022-07-14] MEDS: BUPIVACAINE/EPINEPHRINE 0.5% 10 ML VIAL 30 ML INFILTRATE (16:11)
[2022-07-14] MEDS: fentaNYL CITRATE INJ (*CRX) 100 MCG/2 ML VIAL 25 MCG IV PUSH (16:55)
--- NOTE | 2022-07-14 16:57 | P.OP_ITS ---
Procedure Note - Detailed Date of Procedure 07/14/22 Pre-op Diagnosis Right Femoral Neck Fracture Post-op Diagnosis Same Procedure Performed pinning in-situ right femoral neck fracture Surgeon Salo Michaud MD Hub Inventory Specialist Barbra S Anesthesia General Description of Procedure the patient was identified and site identified. She was taken to the operating room and after general anesthetic induction and intubation, she was transferred over to the fracture table positioned supine taking care to pad her torso and extremities. The fracture was assessed fluoroscopically and noted to be unchanged from the initial films. The right hip and thigh was prepped and draped in usual sterile fashion. 10 cubic centimeters of 0.5% Marcaine and epinephrine solution was injected into the subcutaneous tissue in the area of the incision. Longitudinal incision was made along the lateral aspect of the proximal femur. Subcutaneous tissue sharply dissected down to the ID band which was divided in line with the incision. Under fluoroscopic control three guide pins for the 6.5 millimeter cannulated screws were inserted into the femoral neck and head over which three cannulated screws were passed. Guide pins removed. Hardware placement was assessed fluoroscopically in the AP and lateral views and noted to be satisfactory. The wound was irrigated with sterile saline. ID band reapproximated with 0 Vicryl as was the deeper layers of the subcu. Skin reapproximated with 3-0 V lock and david. Sterile dressings applied. She tolerated the procedure well. She was awakened, extubated and taken to recovery area in stable condition. There were no known intraoperative complications. Estimated blood loss 20 milliliters. She received perioperative antibiotics. Estimated Blood Loss -20.0 Drains No Packing No Pathology None sent Complications No immediate complications Condition Stable Disposition PACU [facility] Billing Surgery - Charge Forward: Surgery Billing ([id number], [id number])
[2022-07-14] MEDS: SENNA/DOCUSATE SODIUM TABLET 2 TAB PO (18:48)
[2022-07-14] MEDS: SODIUM CHLORIDE 0.9% IV 1,000 ML 125 ML IV CONT (18:48)
[2022-07-14] MEDS: FAMOTIDINE 20 MG TABLET PO (20:31)
[2022-07-14] MEDS: METOPROLOL SUCCINATE EXT REL 100 MG TABCR PO (20:32)
[2022-07-14] MEDS: LOPERAMIDE HCL 2 MG CAPSULE PO (21:47)
[2022-07-15] VITALS (10 sets, daily range): BP systolic 120–138; BP diastolic 70–82; PULSE 60–72; RESP 12–18; TEMP 36.2–36.9; O2SAT 88–100
[2022-07-15] MEDS: traMADol HCL (*CRX) 50 MG TABLET PO ×3 (02:48→21:12)
[2022-07-15] MEDS: LEVOTHYROXINE SODIUM 75 MCG TABLET PO (05:38)
[2022-07-15 06:38] LABS: Anion Gap 3 mmol/L (8-16); Blood Urea Nitrogen 17 mg/dL (7-17); Calcium 7.3 mg/dL (8.4-10.2); Carbon Dioxide 24 mmol/L (22-30); Chloride 105 mmol/L (98-107); Estimated CRCL calculation 53 ml/min; Estimated Glomerular Filt Rate > 60; Glucose 100 mg/dL (65-110); Potassium 4.3 mmol/L (3.4-5.0); Sodium 132 mmol/L (137-145)
[2022-07-15 08:16] LABS: Basophils Percent Auto 0.4 % (0.2-1.2); Eosinophils Absolute Auto 0.1 K/mm3 (0-0.3); Eosinophils Percent Auto 1.8 % (0-4.4); Hematocrit 32.3 % (37.0-47.0); Hemoglobin 10.6 g/dL (12.0-15.0); Immature Granulocyte Absolute 0.03 K/mm3 (0.00-0.031); Immature Granulocyte Percent A 0.4 % (0-0.5); Lymphocytes Absolute Auto 0.72 K/mm3 (0.9-3.2); Lymphocytes Percent Auto 9.9 % (18.3-44.2); Mean Corpuscular HGB Conc 32.8 g/dl (32-36); Mean Corpuscular Hemoglobin 33.8 pg (26-34); Mean Corpuscular Volume 102.9 fl (80-100); Mean Platelet Volume 10.8 fl (7.4-10.4); Monocytes Absolute Auto 0.8 K/mm3 (0.1-0.6); Monocytes Percent Auto 10.6 % (2.6-8.5); Neutrophils Absolute Auto 5.6 K/mm3 (1.3-6.7); Neutrophils Percent Auto 76.9 % (45.5-73.1); Platelet Count Result 107 k/mm3 (150-375); Red Blood Count 3.14 M/mm3 (4.2-5.4); Red Cell Distribution Width 13.2 % (11.5-14.5); White Blood Count 7.3 K/mm3 (4.5-10.0)
[2022-07-15] MEDS: METOPROLOL SUCCINATE EXT REL 100 MG TABCR PO ×2 (08:27→21:12)
[2022-07-15] MEDS: oxyBUTYnin CHLORIDE XL 5 MG TAB.ER.24 15 MG PO (08:27)
[2022-07-15] MEDS: APIXABAN 5 MG TABLET PO ×2 (08:29→19:21)
[2022-07-15] MEDS: FAMOTIDINE 20 MG TABLET PO ×2 (08:29→21:12)
[2022-07-15] MEDS: lisinopriL 2.5 MG TABLET PO (08:29)
--- NOTE | 2022-07-15 12:58 | PM.PNORT ---
Progress Note: A&P Assessment and Plan (1) Closed fracture of neck of right femur: Qualifiers: Encounter type: initial encounter Qualified Code(s): S72.001A - Fracture of unspecified part of neck of right femur, initial encounter for closed fracture Code(s): S72.001A - Fracture of unspecified part of neck of right femur, initial encounter for closed fracture Status: Acute Plan 82-year-old female postop day 1 after right hip pinning. She will resume her Eliquis for DVT prophylaxis. Tramadol and Tylenol order for pain which is well controlled currently. She will maintain her 10% weight-bearing of the right lower extremity for a minimum of 8 weeks. She is okay with discharge to rehab for continued PT/ OT services. She will need staple removal of the right lateral hip in 2 weeks. If she is still admitted to the rehab facility they can certainly do that there otherwise plan for follow-up in 2 weeks at the office. Subjective Subjective Date/Time Seen: 07/15/22 12:58 Post Op day: 1 Principal diagnosis: Status post right hip pinning Interval history: 82-year-old female postop day 1 after right hip pinning. Overall doing very well and participated with therapy this morning. She does report soreness but is aware this is expected after the surgery. No significant drainage at the incision site. She is aware of her protected weight-bearing status. Review of Systems Review of Systems: All systems reviewed & are unremarkable except as noted in HPI and below Exam Const: General: comfortable and no acute distress Resp: Effort & Inspection: normal respiratory effort Skin: General skin exam: no erythema Other: Surgical dressing at the lateral hip has a very mild spot of serous fluid. Neuro: Motor exam (neuro): Normal motor muscle tone present throughout Sensory Exam: normal sensation Extrem: Other: No irritability at the left hip at rest. Surgical dressing his described above, No sign of infection. No numbness or tingling down the leg. Mobility at the knee and ankle are full and unremarkable. Neurovascular status right extremity is intact. Psych: Mental Status: mental status grossly normal Radiology Reports: Comments: EXAMINATION: XR surgery orthopedic DATE: 07/14/2022 16:39 INDICATION: Pinning of a right femoral neck fracture. TECHNIQUE: 2 fluoroscopic images of the right hip were obtained during procedure performed by Dr. Birchwood. Radiologist was not present for the imaging or procedure. The amount of fluoroscopy time used during this procedure was 0.9 minutes.? COMPARISON: 07/13/2022 FINDINGS: Interval fixation with 3 cannulated lag screws of the laterally impacted subcapital fracture of the proximal right femur. The screws do not project beyond the articular cortex of the femoral head. The femoral head remains normally centered in the right acetabulum but is rotated as with abduction. No other fractures identified. IMPRESSION: 1. Leg screw fixation of a lateral impacted right femoral subcapital fracture. Femur X-Ray 07/13/22 Objective Data Vital Signs Vital Signs: Vital Signs - 24 hr 07/14/22 14:00 07/14/22 14:35 07/14/22 16:50 Temperature 98.7 F 99.7 F H 97.9 F Pulse Rate 48 L 76 Respiratory Rate 18 16 17 Blood Pressure 128/82 137/84 167/80 H Pulse Oximetry 96 98 100 Oxygen Delivery Room Air Simple Face Mask Oxygen Flow Rate 8 07/14/22 17:10 07/14/22 17:25 07/14/22 17:40 Temperature Pulse Rate 60 73 80 Respiratory Rate 16 14 15 Blood Pressure 131/108 H 160/85 H 168/91 H Pulse Oximetry 97 100 100 Oxygen Delivery Nasal Cannula Nasal Cannula Nasal Cannula Oxygen Flow Rate 2 2 2 07/14/22 17:55 07/14/22 20:32 07/14/22 20:00 Temperature Pulse Rate 80 78 Respiratory Rate 13 Blood Pressure 170/92 H Pulse Oximetry 100 96 Oxygen Delivery Nasal Cannula Nasal Cannula Oxygen Flow Rate 2 2 07/14/22 19:52 07/14/22 23:52 07/15/22 03:52
--- NOTE | 2022-07-15 14:13 | PM.IMPN ---
Progress Note: A&P Assessment and Plan (1) Closed fracture of neck of right femur: Qualifiers: Encounter type: initial encounter Qualified Code(s): S72.001A - Fracture of unspecified part of neck of right femur, initial encounter for closed fracture Code(s): S72.001A - Fracture of unspecified part of neck of right femur, initial encounter for closed fracture Status: Acute (2) Atrial fibrillation: Code(s): I48.91 - Unspecified atrial fibrillation Status: Acute (3) Pacemaker: Code(s): Z95.0 - Presence of cardiac pacemaker Status: Acute Plan 82 years old F with PMH of Afbb, has pacemaker presented after mechanical fall, found to have right hip fracture. # Right Hip Fracture: Orthopedic consulted. Status post pinning 07/14/2022 # H/o Afibb: Eliquis on hold which has been resumed Bradycardic transiently. Continued on metoprolol with hold parameter # HTN: Resume Lisinopril, BB. Beta-reji continue with hold parameter # H/o Hypothyroidism: c/w Levothyroxine # DVT ppx: SCD # Code:Full # Dispo: PT OT, likely need rehabilitation Subjective Date/time seen: 07/15/22 14:13 Interval history: Patient sitting up in chair this morning. Work with therapy. Pain is well controlled. Denies chest pain shortness of breath. No leg swelling. Review of Systems Review of Systems: All systems reviewed & are unremarkable except as noted in HPI and below Exam Narrative: GENERAL: Well-appearing, well-nourished, and in no acute distress. HEAD: Normocephalic, atraumatic. EYES: PERRLA and EOMI. NECK: Supple.? No adenopathy or masses.? CHEST: No respiratory distress. Clear to auscultation. No wheezes rales or rhonchi HEART: Regular rate and rhythm.? No murmur heard.? Normal peripheral pulses. ABDOMEN: Soft, nontender, nondistended, normal active bowel sounds. EXTREMITIES: No edema SKIN: Warm, dry, no rash.? No overlying skin changes NEURO: Cranial nerves II through XII intact.? Alert and oriented x3. No focal deficits.? PSYCH: Normal mood and affect. Objective Data Vital Signs Vital Signs: Vital Signs - 24 hr 07/14/22 14:35 07/14/22 16:50 07/14/22 17:10 Temperature 99.7 F H 97.9 F Pulse Rate 48 L 76 60 Respiratory Rate 16 17 16 Blood Pressure 137/84 167/80 H 131/108 H Pulse Oximetry 98 100 97 Oxygen Delivery Room Air Simple Face Mask Nasal Cannula Oxygen Flow Rate 8 2 07/14/22 17:25 07/14/22 17:40 07/14/22 17:55 Temperature Pulse Rate 73 80 80 Respiratory Rate 14 15 13 Blood Pressure 160/85 H 168/91 H 170/92 H Pulse Oximetry 100 100 100 Oxygen Delivery Nasal Cannula Nasal Cannula Nasal Cannula Oxygen Flow Rate 2 2 2 07/14/22 20:32 07/14/22 20:00 07/14/22 19:52 Temperature 97.9 F Pulse Rate 78 69 Respiratory Rate 18 Blood Pressure 150/75 H Pulse Oximetry 96 98 Oxygen Delivery Nasal Cannula Oxygen Flow Rate 2 07/14/22 23:52 07/15/22 03:52 07/15/22 07:52 Temperature 97.0 F L 97.9 F Pulse Rate 67 60 Respiratory Rate 18 18 Blood Pressure 147/71 H 131/82 Pulse Oximetry 100 98 Oxygen Delivery Room Air Oxygen Flow Rate 07/15/22 08:27 07/15/22 08:00 07/15/22 09:07 Temperature Pulse Rate 62 70 Respiratory Rate 16 Blood Pressure Pulse Oximetry 92 Oxygen Delivery Nasal Cannula Room Air Oxygen Flow Rate 2 07/15/22 09:00 07/15/22 08:30 07/15/22 12:00 Temperature 98 F Pulse Rate 64 Respiratory Rate 18 Blood Pressure 121/78 Pulse Oximetry 91 92 88 L Oxygen Delivery Room Air Room Air Oxygen Flow Rate 07/15/22 12:02 07/15/22 12:00 Temperature 97.1 F L Pulse Rate 72 Respiratory Rate 18 Blood Pressure 120/78 Pulse Oximetry 93 94 Oxygen Delivery Nasal Cannula Oxygen Flow Rate 0.5 Intake/Output Intake/Output: Intake & Output 07/12/22 07/13/22 07/14/22 07/15/22 23:59 23:59 23:59 23:59 Intake Total 1710 1950 1400 Output Total 950 1540 600 Balance 760 410 800
[2022-07-16 04:00] VITALS: BP 141/87; PULSE 65; RESP 18; TEMP 36.2; O2SAT 98
[2022-07-16] MEDS: LEVOTHYROXINE SODIUM 75 MCG TABLET PO (05:50)
[2022-07-16 06:12] LABS: Basophils Percent Auto 0.5 % (0.2-1.2); Eosinophils Absolute Auto 0.3 K/mm3 (0-0.3); Eosinophils Percent Auto 4.2 % (0-4.4); Hematocrit 32.4 % (37.0-47.0); Hemoglobin 10.8 g/dL (12.0-15.0); Immature Granulocyte Absolute 0.03 K/mm3 (0.00-0.031); Immature Granulocyte Percent A 0.5 % (0-0.5); Immature Platelet Fraction Pct 5.6 % (0.9-11.2); Lymphocytes Absolute Auto 0.94 K/mm3 (0.9-3.2); Lymphocytes Percent Auto 15.7 % (18.3-44.2); Mean Corpuscular HGB Conc 33.3 g/dl (32-36); Mean Corpuscular Hemoglobin 34.1 pg (26-34); Mean Corpuscular Volume 102.2 fl (80-100); Mean Platelet Volume 10.5 fl (7.4-10.4); Monocytes Absolute Auto 0.8 K/mm3 (0.1-0.6); Monocytes Percent Auto 13.4 % (2.6-8.5); Neutrophils Absolute Auto 3.9 K/mm3 (1.3-6.7); Neutrophils Percent Auto 65.7 % (45.5-73.1); Platelet Count Result 134 k/mm3 (150-375); Red Blood Count 3.17 M/mm3 (4.2-5.4); Red Cell Distribution Width 13.1 % (11.5-14.5)
[2022-07-16 06:22] LABS: Alanine Aminotransferase 19 U/L (6-35); Albumin Level 3.2 g/dL (3.5-5.1); Alkaline Phosphatase 71 U/L (38-126); Anion Gap 2 mmol/L (8-16); Aspartate Amino Transferase 33 U/L (14-36); Bilirubin,Total 0.8 mg/dL (0.2-1.3); Blood Urea Nitrogen 18 mg/dL (7-17); Calcium 7.6 mg/dL (8.4-10.2); Carbon Dioxide 28 mmol/L (22-30); Chloride 102 mmol/L (98-107); Estimated CRCL calculation 46 ml/min; Estimated Glomerular Filt Rate > 60; Glucose 93 mg/dL (65-110); Magnesium 1.5 mg/dL (1.6-2.3); Potassium 4.6 mmol/L (3.4-5.0); Sodium 132 mmol/L (137-145)
[2022-07-16] MEDS: polyethylene glycoL 3350 17 GM POWD.PACK PO (08:45)
[2022-07-16] MEDS: oxyBUTYnin CHLORIDE XL 5 MG TAB.ER.24 15 MG PO (08:45)
[2022-07-16 08:46] VITALS: PULSE 80
[2022-07-16] MEDS: APIXABAN 5 MG TABLET PO ×2 (08:46→16:39)
[2022-07-16] MEDS: METOPROLOL SUCCINATE EXT REL 100 MG TABCR PO ×2 (08:46→20:29)
[2022-07-16] MEDS: FAMOTIDINE 20 MG TABLET PO ×2 (08:46→20:28)
[2022-07-16] MEDS: lisinopriL 2.5 MG TABLET PO (08:47)
[2022-07-16 13:52] VITALS: BP 137/77; PULSE 79; RESP 16; TEMP 36.2; O2SAT 93
--- NOTE | 2022-07-16 15:26 | PM.IMPN ---
Progress Note: A&P Assessment and Plan (1) Closed fracture of neck of right femur: Qualifiers: Encounter type: initial encounter Qualified Code(s): S72.001A - Fracture of unspecified part of neck of right femur, initial encounter for closed fracture Code(s): S72.001A - Fracture of unspecified part of neck of right femur, initial encounter for closed fracture Status: Acute (2) Atrial fibrillation: Code(s): I48.91 - Unspecified atrial fibrillation Status: Acute (3) Pacemaker: Code(s): Z95.0 - Presence of cardiac pacemaker Status: Acute Plan 82 years old F with PMH of Afbb, has pacemaker presented after mechanical fall, found to have right hip fracture. # Right Hip Fracture: Orthopedic consulted. Status post pinning 07/14/2022 # H/o Afibb: Eliquis on hold which has been resumed Bradycardic transiently. Continued on metoprolol with hold parameter # HTN: Resume Lisinopril, BB. Beta-reji continue with hold parameter # H/o Hypothyroidism: c/w Levothyroxine # DVT ppx: SCD # Code:Full # Dispo: PT OT, likely need rehabilitation Subjective Date/time seen: 07/16/22 15:26 Interval history: No overnight events. Doing well. Denies chest pain or shortness of breath. Awaiting transfer to rehab. Review of Systems Review of Systems: All systems reviewed & are unremarkable except as noted in HPI and below Exam Narrative: GENERAL: Well-appearing, well-nourished, and in no acute distress. HEAD: Normocephalic, atraumatic. EYES: PERRLA and EOMI. NECK: Supple.? No adenopathy or masses.? CHEST: No respiratory distress. Clear to auscultation. No wheezes rales or rhonchi HEART: Regular rate and rhythm.? No murmur heard.? Normal peripheral pulses. ABDOMEN: Soft, nontender, nondistended, normal active bowel sounds. EXTREMITIES: No edema SKIN: Warm, dry, no rash.? No overlying skin changes NEURO: Cranial nerves II through XII intact.? Alert and oriented x3. No focal deficits.? PSYCH: Normal mood and affect. Objective Data Vital Signs Vital Signs: Vital Signs - 24 hr 07/15/22 16:00 07/15/22 21:12 07/15/22 20:00 Temperature 97.7 F Pulse Rate 63 69 Respiratory Rate 12 Blood Pressure 124/75 Pulse Oximetry 100 95 Oxygen Delivery Nasal Cannula Oxygen Flow Rate 0.5 07/15/22 20:00 07/16/22 04:00 07/16/22 08:46 Temperature 98.5 F 97.2 F L Pulse Rate 69 65 80 Respiratory Rate 18 18 Blood Pressure 138/70 141/87 H Pulse Oximetry 97 98 Oxygen Delivery Oxygen Flow Rate 07/16/22 13:52 Temperature 97.1 F L Pulse Rate 79 Respiratory Rate 16 Blood Pressure 137/77 Pulse Oximetry 93 Oxygen Delivery Oxygen Flow Rate Intake/Output Intake/Output: Intake & Output 07/13/22 07/14/22 07/15/22 07/16/22 23:59 23:59 23:59 23:59 Intake Total 1710 1950 1810 360 Output Total 950 1540 600 600 Balance 766 567 7547 -240 Meds/Results Medications: Active Medications Generic Name Dose Route Start Last Admin Trade Name Robelq PRN Reason Stop Dose Admin Acetaminophen 650 mg 07/14/22 18:07 Acetaminophen 325 Mg Tablet PO Q6H PRN Mild Pain (1-3) or Fever Apixaban 5 mg 07/15/22 09:00 07/16/22 08:46 Apixaban 5 Mg Tablet PO 5 mg BID EMESRON Administration Famotidine 20 mg 07/14/22 21:00 07/16/22 08:46 Famotidine 20 Mg Tablet PO 20 mg Q12HR EMERSON Administration Levothyroxine Sodium 75 mcg 07/13/22 06:30 07/16/22 05:50 Levothyroxine Sodium 75 Mcg Tablet PO 75 mcg DAILY@0630 EMERSON Administration Lisinopril 2.5 mg 07/13/22 09:00 07/16/22 08:47 Lisinopril 2.5 Mg Tablet PO 2.5 mg DAILY EMERSON Administration Loperamide HCl 2 mg 07/14/22 21:33 07/14/22 21:47 Loperamide Hcl 2 Mg Capsule PO 2 mg Q6H PRN Administration Diarrhea Metoprolol Succinate 100 mg 07/13/22 09:00 07/16/22 08:46 Metoprolol Succinate Ext Rel 100 Mg Tabcr PO 100 mg Q12HR EMERSON Administration Naloxone
[2022-07-16] MEDS: SENNA/DOCUSATE SODIUM TABLET 2 TAB PO (16:39)
[2022-07-16 20:00] VITALS: BP 153/88; PULSE 65; PULSE 80; RESP 18; RESP 20; TEMP 36.8; O2SAT 95; O2SAT 96
[2022-07-17] MEDS: ACETAMINOPHEN 325 MG TABLET 650 MG PO (01:34)
[2022-07-17 04:00] VITALS: BP 145/87; PULSE 68; RESP 16; TEMP 36.3; O2SAT 95
[2022-07-17] MEDS: LEVOTHYROXINE SODIUM 75 MCG TABLET PO (05:48)
[2022-07-17 07:34] VITALS: PULSE 60; RESP 18; O2SAT 97
[2022-07-17 08:00] VITALS: BP 141/82; PULSE 72; RESP 16; TEMP 36.5; O2SAT 95
[2022-07-17 08:30] VITALS: O2SAT 94
[2022-07-17] MEDS: SENNA/DOCUSATE SODIUM TABLET 2 TAB PO ×2 (08:31→15:53)
[2022-07-17 08:32] VITALS: PULSE 66
[2022-07-17] MEDS: oxyBUTYnin CHLORIDE XL 5 MG TAB.ER.24 15 MG PO (08:32)
[2022-07-17] MEDS: METOPROLOL SUCCINATE EXT REL 100 MG TABCR PO (08:32)
[2022-07-17] MEDS: APIXABAN 5 MG TABLET PO ×2 (08:32→15:53)
[2022-07-17] MEDS: lisinopriL 2.5 MG TABLET PO (08:32)
[2022-07-17] MEDS: FAMOTIDINE 20 MG TABLET PO (08:32)
[2022-07-17] MEDS: polyethylene glycoL 3350 17 GM POWD.PACK PO (08:33)
--- NOTE | 2022-07-17 09:58 | PCOTNOTE ---
Attempted to 2x to see pt for Occupational therapy. Pt was eating breakfast at 1st attempt and was with PT at 2nd attempt. Will continue per POC duration/frequency later.
--- NOTE | 2022-07-17 11:59 | PM.DS ---
DS: Admitting Diagnosis Discharge Date 07/16/2022 Admitting Diagnosis Fall DS: Discharge Diagnosis Discharge Diagnosis (1) Closed fracture of neck of right femur: Qualifiers: Encounter type: initial encounter Qualified Code(s): S72.001A - Fracture of unspecified part of neck of right femur, initial encounter for closed fracture Code(s): S72.001A - Fracture of unspecified part of neck of right femur, initial encounter for closed fracture Status: Acute (2) Atrial fibrillation: Code(s): I48.91 - Unspecified atrial fibrillation Status: Acute (3) Pacemaker: Code(s): Z95.0 - Presence of cardiac pacemaker Status: Acute DS: Summary Hospital Course Hospital Course: 82 years old F with PMH of Afbb, has pacemaker presented after mechanical fall, found to have right hip fracture. # Right Hip Fracture:? Orthopedic consulted.? Status post pinning 07/14/2022 # H/o Afib:eliquis resumed. Bradycardic transiently.? Continued on metoprolol with hold parameter # HTN:Resume Lisinopril, BB.? Beta-reji continue with hold parameter # H/o Hypothyroidism: c/w Levothyroxine # DVT ppx:? SCD # Code:Full # Dispo:? PT OT, likely need rehabilitation. [email or web address] to [facility] for rehabiltiation Time Spent with Patient Time attestation: Total time spent providing and/or coordinating discharge services: 35 minutes Exam Narrative: GENERAL: Well-appearing, well-nourished, and in no acute distress. HEAD: Normocephalic, atraumatic. EYES: PERRLA and EOMI. NECK: Supple.? No adenopathy or masses.? CHEST: No respiratory distress. Clear to auscultation. No wheezes rales or rhonchi HEART: Regular rate and rhythm.? No murmur heard.? Normal peripheral pulses. ABDOMEN: Soft, nontender, nondistended, normal active bowel sounds. EXTREMITIES: No edema SKIN: Warm, dry, no rash.? No overlying skin changes NEURO: Cranial nerves II through XII intact.? Alert and oriented x3. No focal deficits.? PSYCH: Normal mood and affect. DS: Data Data Completed and Pending Labs on day of discharge: Labs from last 24 hours 07/16/22 07/16/22 05:47 05:47 WBC 6.0 RBC 3.17 L Hgb 10.8 L Hct 32.4 L MCV 102.2 H MCH 34.1 H MCHC 33.3 RDW 13.1 Plt Count 134 L MPV 10.5 H Immature Gran % (Auto) 0.5 Neut % (Auto) 65.7 Lymph % (Auto) 15.7 L [place] % (Auto) 13.4 H Eos % (Auto) 4.2 Baso % (Auto) 0.5 Lymph # (Auto) 0.94 [place] # (Auto) 0.8 H Eos # (Auto) 0.3 Baso # (Auto) 0.0 Abs Immat Gran (auto) 0.03 Absolute Neuts (auto) 3.9 Absolute Nucleated RBC 0.0 Nucleated RBC % 0.0 % Immature Plt Fraction 5.6 Sodium 132 L Potassium 4.6 Chloride 102 Carbon Dioxide 28 Anion Gap 2 L BUN 18 H Creatinine 0.70 Estim Creat Clear Calc 46 Estimated GFR > 60 Glucose 93 Calcium 7.6 L Magnesium 1.5 L Total Bilirubin 0.8 AST 33 ALT 19 Alkaline Phosphatase 71 Total Protein 7.0 Albumin 3.2 L Procedures/Treatments: Procedure Note - Detailed Date of Procedure 07/14/22 Pre-op Diagnosis Right Femoral Neck Fracture Post-op Diagnosis Same Procedure Performed ?pinning in-situ right femoral neck fracture Surgeon Salo Michaud MD [facility] S Anesthesia General Description of Procedure ?the patient was identified and site identified.? She was taken to the operating room and after general anesthetic induction and intubation, she was transferred over to the fracture table positioned supine taking care to pad her torso and extremities.? The fracture was assessed fluoroscopically and noted to be unchanged from the initial films.? The right hip and thigh was prepped and draped in usual sterile fashion.? 10 cubic centimeters of 0.5% Marcaine and epinephrine solution was injected into the subcutaneous tissue in the area of the incision.? Longitudinal incision was made along the lateral aspect of the proximal femur.? Subcutaneous tissue sharply dissected
[2022-07-17 14:00] VITALS: BP 144/78; PULSE 69; RESP 18; TEMP 36.7; O2SAT 100
== END 2022-07-17 17:05 | DRG 482 ==
LOC: ANHED 07-13 03:09 → ANH3MEDSUR 07-13 03:49
PROVIDERS: Internal Medicine; Orthopaedic Surgery; Admitting Provider Internal Medicine; Emergency Provider Physician Assistant; PCP Student in an Organized Health Care Education/Training Program; Visit Provider Internal Medicine
PROC: 0QH634Z Insertion of Internal Fixation Device into Right Upper Femur, Percutaneous Approach (ICD-10-PCS; principal; 2022-07-14 15:30)
DX: S72.011A Unspecified intracapsular fracture of right femur, initial encounter for closed fracture (principal); W01.0XXA Fall on same level from slipping, tripping and stumbling without subsequent striking against object, initial encounter; E03.9 Hypothyroidism, unspecified; I48.91 Unspecified atrial fibrillation; I10 Essential (primary) hypertension; Z79.01 Long term (current) use of anticoagulants; Z95.0 Presence of cardiac pacemaker; Z96.652 Presence of left artificial knee joint
CPT/HCPCS: 36415; 70450; 71045; 72131; 72192; 73552; 80048; 80053; 81001; 82948; 83036; 83735; 85025; 85055; 86850; 86900; 86901; 87637; 96374; 96375; 97110; 97116; 97161; 97165; 97530; 97535; 99199; 99285; A9270; C1769; J0690; J1644; J2270; J2370; J2405; J2704; J3010; J7030; J7040; J7120